=== PATIENT | female | born 1995 | race Two or more races ===

== ENCOUNTER 2020-07-09 18:01 | Emergency (ER) | payer MEDICAID, OTHER ==
[~2020-07-09] VITALS: Ht 170.2 cm; Wt 70.3 kg
[2020-07-09 18:01] VITALS: BP 97/58
[2020-07-09] MEDS ORDERED: ACETAMINOPHEN 325 MG TAB PO ONE (20:30)
== END 2020-07-09 21:25 | disposition home or self-care (01) ==
LOC: ER 18:01
DX: G44.209 Tension-type headache, unspecified, not intractable (principal); H53.9 Unspecified visual disturbance
CPT/HCPCS: 70450; 81025